=== PATIENT | male | born 1935 | race Caucasian/White ===

== ENCOUNTER → 2016-09-26 | Day surgery (SDC) | payer MEDICARE ==
[~2016-09-26] MED LIST: SIMETHICONE 40 MG/0.6 ML DROPS 2,000 MG/30 ML BOTTLE PO ONE
== END ==
LOC: ORWHC2ENDO 06:37
PROVIDERS: ATTEND Internal Medicine Gastroenterology
DX: K31.819 Angiodysplasia of stomach and duodenum without bleeding (principal); D50.9 Iron deficiency anemia, unspecified
CPT/HCPCS: 91110

== ENCOUNTER 2016-12-04 18:29 | Observation (INO) | payer MEDICARE ==
--- NOTE | 2016-12-04 18:57 | ED ---
General Adult HPI - General Chief complaint: Chest Pain Stated complaint: Chest Pain Time Seen by Provider: 12/04/16 18:42 Source: patient, family, EMS, RN notes reviewed Mode of arrival: EMS Limitations: no limitations - History of Present Illness Initial comments: Patient is a pleasant 81-year-old male presenting to the emergency Department with chest discomfort. Onset was around 1:00. Discomfort did improve with nitroglycerin. Discomfort is currently 5/10. Discomfort is feeling like heaviness. Patient does have some mild associated dyspnea. No nausea. Patient felt warm earlier however no sweating. Patient does have a history of CHF. Patient has not had similar symptoms previously however. Patient was seen at [facility] and they did discuss the case with cardiology. Decision was to transfer for cardiology care. - Related Data Home Medications Medication Instructions Recorded Confirmed Captopril [Capoten] 12.5 mg PO DAILY 03/18/14 12/04/16 Furosemide [Lasix] 80 mg PO BID 03/18/14 12/04/16 Levothyroxine Sodium [Synthroid] 50 mcg PO DAILY 03/18/14 12/04/16 Metoprolol Succinate [Toprol XL] 25 mg PO DAILY 03/18/14 12/04/16 Pravastatin Sodium [Pravachol] 40 mg PO HS 03/18/14 12/04/16 Spironolactone [Aldactone] 50 mg PO BID 03/18/14 12/04/16 Budesonide [Pulmicort] 0.5 mg INHALATION RT-BID 03/23/14 12/04/16 Fish Oil/Dha/Epa [Fish Oil 1,200 1 cap PO DAILY 03/23/14 12/04/16 mg Fish Oil] ALPRAZolam [Xanax] 0.25 mg PO DAILY PRN 09/25/16 12/04/16 Docusate [Colace] 100 mg PO DAILY PRN 12/04/16 12/04/16 Focus Maculapro 1 tab PO DAILY 12/04/16 12/04/16 Lutein 10 mg PO DAILY 12/04/16 12/04/16 Pantoprazole Sodium [Protonix] 40 mg PO DAILY 12/04/16 12/04/16 Vit C/E/Zn/Coppr/Lutein/Zeaxan 1 cap PO BID 12/04/16 12/04/16 [Preservision Areds 2 Softgel] Allergies Allergy/AdvReac Type Severity Reaction Status Date / Time celecoxib [From Celebrex] Allergy Rash/Hives Verified 12/04/16 18:44 indomethacin [From Indocin] Allergy Unknown Verified 12/04/16 18:44 indomethacin sodium Allergy Unknown Verified 12/04/16 18:44 [From Indocin] Penicillins Allergy Anaphylaxis Verified 12/04/16 18:44 Sulfa (Sulfonamide Allergy Rash/Hives Verified 12/04/16 18:44 Antibiotics) bacitracin AdvReac Blisters Verified 12/04/16 18:44 [From Neosporin ([id number])] bacitracin zinc AdvReac Blisters Verified 12/04/16 18:44 [From Neosporin ([id number])] codeine AdvReac Nausea & Verified 12/04/16 18:44 Vomiting neomycin sulfate AdvReac Blisters Verified 12/04/16 18:44 [From Neosporin ([id number])] polymyxin B AdvReac Blisters Verified 12/04/16 18:44 [From Neosporin ([id number])] Review of Systems ROS Statement: Those systems with pertinent positive or pertinent negative responses have been documented in the HPI. ROS Other: All systems not noted in ROS Statement are negative. Constitutional: Denies: fever Eyes: Denies: eye pain ENT: Denies: ear pain Respiratory: Reports: dyspnea. Denies: cough Cardiovascular: Reports: chest pain Endocrine: Denies: fatigue Gastrointestinal: Denies: abdominal pain Genitourinary: Denies: dysuria Skin: Denies: rash Neurological: Denies: weakness Past Medical History Past Medical History: Atrial Fibrillation, COPD, GERD/Reflux, GI Bleed, Hyperlipidemia, Hypertension, Skin Disorder, Sleep Apnea/CPAP/BIPAP, Thyroid Disorder Additional Past Medical History / Comment(s): see Dr Barrios H&P, arthritis, eczema,hx asbestos exposure. 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 RECENT GI BLEED 09/04/16, HX VERTIGO History of Any Multi-Drug Resistant Organisms: None Reported Past Surgical History: AICD, Appendectomy, Hernia Repair, Joint Replacement, Orthopedic Surgery Additional Past Surgical History / Comment(s): BILAT TKA, heel spurs, BILAT CTR X2, COLONOSCOPY, EGD, RECTAL FISTULA SX. [facility] AICD Past Anesthesia/Blood Transfusion Reactions: Previous Problems w/ Anesthesia Additional Past Anesthesia/Blood Transfusion Reaction / Comment(s): WAS AGGITATED ONCE WITH ANESTHESIA PER DAUGHTER, OTHERWISE NO PROBLEMS Type of Cardiac Device: AICD Device Placement Date:: 03-23-14 Past Psychological History: Anxiety Smoking Status: Former smoker Past Alcohol Use History: Daily Additional Past Alcohol Use History / Comment(s): quit smoking approx 1968 started at age 10. DRINKS 2-3 BEERS DAILY Past Drug Use History: None Reported - Past Family History Mother Family Medical History: Cancer Sister(s) Family Medical History: Cancer General Exam Limitations: no limitations General appearance: alert, in no apparent distress Head exam: Present: atraumatic Eye exam: Present: normal appearance, PERRL ENT exam: Present: normal oropharynx Neck exam: Present: normal inspection Respiratory exam: Present: wheezes (Mild expiratory wheeze). Absent: chest wall tenderness Cardiovascular Exam: Present: regular rate, normal rhythm Expanded Peripheral pulses: 2+: Radial (R), Radial (L), Dorsalis Pedis (R), Dorsalis Pedis (L) GI/Abdominal exam: Present: soft. Absent: tenderness Extremities exam: Present: normal inspection. Absent: pedal edema, calf tenderness Neurological exam: Present: alert Psychiatric exam: Present: normal affect, normal mood Skin exam: Absent: rash Course Vital Signs 12/04/16 18:30 Temperature 98 F Pulse Rate 94 Respiratory 18 Rate Blood Pressure 113/68 O2 Sat by Pulse 93 L Oximetry Medical Decision Making - Medical Decision Making Reports reviewed from [facility]. Case was discussed in detail with practitioner Enid sweet, who will admit for Dr. Temple who is covering for Dr. martinez who admits for Dr. Gilliam. Disposition Clinical Impression: Unstable angina pectoris Disposition: ADMITTED IP TO THIS [facility] Time of Disposition: 18:57
[2016-12-04] MEDS ORDERED: HEPARIN SODIUM,PORCINE 5,000 UNIT/ML 1 ML VIAL IV PRN (19:03)
[2016-12-04] MEDS ORDERED: NITROGLYCERIN-D5W PMX 50 MG in DEXTROSE/WATER 1 250ML.BAG IV ONE (19:05)
[2016-12-04] MEDS ORDERED: HEPARIN SODIUM,PORCINE/D5W PMX 25,000 UNIT in DEXTROSE/WATER 1 500ML.BAG IV SCH (19:15)
[2016-12-04 21:10] VITALS: BMI 42.4
[2016-12-04 22:24] LABS: Creatine Kinase 26 U/L (55-170)
[2016-12-04 22:28] VITALS: RESP 18
[2016-12-04 22:37] LABS: Creatine Kinase MB 0.3 ng/mL (0.0-2.4); Troponin I <0.012 ng/mL (0.000-0.034)
[2016-12-04] MEDS: HYDROmorphone 1 MG/ML 1 ML SYRINGE IVP PRN (23:45)
[2016-12-05 01:23] LABS: Creatine Kinase 24 U/L (55-170)
[2016-12-05 01:36] LABS: Creatine Kinase MB 0.3 ng/mL (0.0-2.4); Troponin I <0.012 ng/mL (0.000-0.034)
[2016-12-05] MEDS: HYDROmorphone 1 MG/ML 1 ML SYRINGE IVP PRN (06:48)
[2016-12-05 07:21] LABS: Cholesterol 119 mg/dL (<200); HDL Cholesterol 42 mg/dL (40-60); Triglycerides 86 mg/dL (<150)
[2016-12-05] MEDS ORDERED: ASPIRIN 325 MG TAB PO SCH (09:00)
[2016-12-05] MEDS ORDERED: METOPROLOL SUCCINATE (ER) 25 MG TAB.ER.24H PO SCH (09:00)
--- NOTE | 2016-12-05 09:04 | P.CRDCN ---
History of Present Illness Consult date: 12/05/16 Requesting physician: Candido Temple Consult reason: chest pain Chief complaint: Chest pain History of present illness: This is an 81-year-old gentleman who follows regularly with Dr. Michael in the office. He has a known history of hyperlipidemia, peripheral vascular disease, hypertension, COPD, sleep apnea, nonischemic cardiomyopathy with prior bypass AICD implantation, paroxysmal atrial fibrillation, patient had been on anticoagulation in the past, she had significant GI bleeding and for this reason is not currently on anticoagulation. Patient underwent EGD which revealed in February 03 for which he underwent cauterization of that area. Subsequent to that patient again had positive heme in his stool. He presents to [facility] on this occasion with symptoms of midsternal chest pressure and heaviness. According to the patient he went shopping yesterday and felt more short of breath than usual. He was sitting at his computer in the afternoon, when he developed pressure in the midsternal area radiating across his chest, he did become short of breath. He denies any diaphoresis or nausea. He states that he continues to have the discomfort this morning although it seems to come and go. The pain does worsen or improve with specific movement and with deep inspiration. Patient was transferred here to [facility]. Blood pressure on arrival here 113/68 with a heart rate in the 90s, 93% on 2 L of oxygen. EKG shows a ventricular paced rhythm. Chest x-ray performed at [facility] did not reveal any acute process. Correlation for asbestos recommended. Laboratory data at [facility], sodium 137, potassium 4.6, BUN 35, creatinine 1.4, troponin less than 0.03. WBC 12.9, hemoglobin 13, platelet count 303. Troponins 2 have been negative here as well. At the time of my examination this morning, patient complains of mild heaviness in the chest, improves with lying on his left side. Past Medical History Past Medical History: Atrial Fibrillation, Chest Pain / Angina, COPD, GERD/ Reflux, GI Bleed, Hearing Disorder / Deafness, Hyperlipidemia, Hypertension, Skin Disorder, Sleep Apnea/CPAP/BIPAP, Thyroid Disorder Additional Past Medical History / Comment(s): see Dr Barrios H&P, arthritis, eczema,hx asbestos exposure. 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 RECENT GI BLEED 09/04/16, HX VERTIGO, small bowel cautery 10/08/[address] Monroe History of Any Multi-Drug Resistant Organisms: None Reported Past Surgical History: AICD, Appendectomy, Hernia Repair, Joint Replacement, Orthopedic Surgery Additional Past Surgical History / Comment(s): BILAT TKA, heel spurs, BILAT CTR X2, COLONOSCOPY, EGD, RECTAL FISTULA SX. [facility] AICD, small bowel egd Past Anesthesia/Blood Transfusion Reactions: Previous Problems w/ Anesthesia Additional Past Anesthesia/Blood Transfusion Reaction / Comment(s): WAS AGGITATED ONCE WITH ANESTHESIA PER DAUGHTER, OTHERWISE NO PROBLEMS Type of Cardiac Device: AICD Device Placement Date:: 03-23-14 Past Psychological History: Anxiety Smoking Status: Former smoker Past Alcohol Use History: Daily Additional Past Alcohol Use History / Comment(s): started at age 10. DRINKS 2- 3 BEERS DAILY Past Drug Use History: None Reported - Past Family History Mother Family Medical History: Cancer Additional Family Medical History / Comment(s): breast CA age 98 Sister(s) Family Medical History: Cancer Medications and Allergies Home Medications Medication Instructions Recorded Confirmed Type Captopril [Capoten] 12.5 mg PO HS 03/18/14 12/04/16 History Furosemide [Lasix] 80 mg PO BID 03/18/14 12/04/16 History Levothyroxine Sodium [Synthroid] 50 mcg PO HS 03/18/14 12/04/16 History Metoprolol Succinate [Toprol XL] 25 mg PO DAILY 03/18/14 12/04/16 History Pravastatin Sodium [Pravachol] 40 mg PO HS 03/18/14 12/04/16 History Spironolactone [Aldactone] 50 mg PO BID 03/18/14 12/04/16 History Budesonide [Pulmicort] 0.5 mg INHALATION RT-BID 03/23/14 12/04/16 History Fish Oil/Dha/Epa [Fish Oil 1,200 1 cap PO DAILY 03/23/14 12/04/16 History mg Fish Oil] ALPRAZolam [Xanax] 0.25 mg PO DAILY PRN 09/25/16 12/04/16 History Docusate [Colace] 100 mg PO HS 12/04/16 12/04/16 History Focus Maculapro 1 tab PO DAILY 12/04/16 12/04/16 History Lutein 10 mg PO DAILY 12/04/16 12/04/16 History Pantoprazole Sodium [Protonix] 40 mg PO DAILY 12/04/16 12/04/16 History Vit C/E/Zn/Coppr/Lutein/Zeaxan 1 cap PO BID 12/04/16 12/04/16 History [Preservision Areds 2 Softgel] Allergies Allergy/AdvReac Type Severity Reaction Status Date / Time celecoxib [From Celebrex] Allergy Rash/Hives Verified 12/04/16 20:00 indomethacin [From Indocin] Allergy Rash/Hives Verified 12/04/16 20:00 indomethacin sodium Allergy Rash/Hives Verified 12/04/16 20:00 [From Indocin] Penicillins Allergy Anaphylaxis Verified 12/04/16 20:00 Sulfa (Sulfonamide Allergy Rash/Hives Verified 12/04/16 20:00 Antibiotics) bacitracin AdvReac Blisters Verified 12/04/16 20:00 [From Neosporin ([id number])] bacitracin zinc AdvReac Blisters Verified 12/04/16 20:00 [From Neosporin ([id number])] codeine AdvReac Nausea & Verified 12/04/16 20:00 Vomiting neomycin sulfate AdvReac Blisters Verified 12/04/16 20:00 [From Neosporin ([id number])] polymyxin B AdvReac Blisters Verified 12/04/16 20:00 [From Neosporin ([id number])] Physical Exam Vitals: Vital Signs Temp Pulse Pulse Resp BP BP Pulse Ox 12/05/16 04:30 97.6 F 85 18 143/92 96 12/04/16 23:00 98.9 F 91 18 119/57 96 12/04/16 20:20 98.0 F 102 H 18 122/63 98 12/04/16 19:56 102 H 20 123/55 97 Intake and Output 12/04/16 12/05/16 12/05/16 22:59 06:59 14:59 Intake Total 500 120.333 0 Output Total 780 200 Balance 500 -659.667 -200 Intake: Amount of Fluid Infused ( 250 ml) Intake, IV Titration 120.333 Amount Heparin Sodium,Porcine/ 120.333 D5w Pmx 25,000 unit In Dextrose/Water 1 500ml. bag @ 12 UNITS/KG/HR 27. 21 mls/hr IV .[id number] [facility] Rx#:[id number] Oral 250 0 Output: Urine 675 200 Post Void Residual 105 Other: Voiding Method Urinal # Voids 1 Weight 115.666 kg 112.4 kg PHYSICAL EXAMINATION: HEENT: Head is atraumatic, normocephalic. Pupils equal, round. Neck is supple. There is no elevated jugular venous pressure. HEART EXAMINATION: Heart S1, S2 normal. No murmur or gallop heard. CHEST EXAMINATION: His reveal coarse rhonchi that clear with cough. ABDOMEN: Soft, obese, nontender. Bowel sounds are heard. No organomegaly noted. EXTREMITIES: 2+ peripheral pulses with trace evidence of peripheral edema and no calf tenderness noted. NEUROLOGIC patient is awake, alert and oriented -3. . Results 12/05/16 06:39 Cardiac Enzymes 12/04/16 12/05/16 Range/Units 21:46 00:52 CK-MB (CK-2) 0.3 0.3 (0.0-2.4) ng/mL Troponin I <0.012 <0.012 (0.000-0.034) ng/mL Coagulation 12/05/16 12/05/16 Range/Units 00:52 06:39 APTT 34.0 H 55.9 H (22.0-30.0) sec Lipids 12/05/16 Range/Units 06:39 Triglycerides 86 (<150) mg/dL Cholesterol 119 (<200) mg/dL HDL Cholesterol 42 (40-60) mg/dL CBC 12/05/16 Range/Units 06:39 Plt Count 234 (150-450) k/uL Current Medications Generic Name Dose Route Start Last Admin Trade Name Freq PRN Reason Stop Dose Admin Aspirin 325 mg 12/05/16 09:00 Aspirin PO DAILY [facility] Heparin Sodium (Porcine) 0 unit 12/04/16 19:03 12/05/16 01:27 Heparin IV 4,000 unit Q6HR PRN Administration Low PTT Protocol Hydromorphone HCl 0.5 mg 12/04/16 23:15 12/05/16 06:48 Dilaudid IVP 0.5 mg Q6HR PRN Administration Pain Heparin Sodium/Dextrose 25,000 500 mls @ 27.21 mls/hr 12/04/16 19:15 01:28 unit/ IV Solution IV 11.81 units/kg/hr .[id number] [facility] 26.78 mls/hr Protocol Titration 12 UNITS/KG/HR Nitroglycerin/Dextrose 50 mg/ 250 mls @ 3 mls/hr 12/04/16 19:05 12/04/16 19: 26 IV Solution IV 12/05/16 19:04 10 mcg/min .Q24H ONE 3 mls/hr Protocol Administration 10 MCG/MIN Intake and Output 12/04/16 12/05/16 12/05/16 22:59 06:59 14:59 Intake Total 500 120.333 0 Output Total 780 200 Balance 500 -659.667 -200 Intake: Amount of Fluid Infused ( 250 ml) Intake, IV Titration 120.333 Amount Heparin Sodium,Porcine/ 120.333 D5w Pmx 25,000 unit In Dextrose/Water 1 500ml. bag @ 12 UNITS/KG/HR 27. 21 mls/hr IV .[id number] [facility] Rx#:[id number] Oral 250 0 Output: Urine 675 200 Post Void Residual 105 Other: Voiding Method Urinal # Voids 1 Weight 115.666 kg 112.4 kg 12/05/16 06:39 EKG Interpretations (text) EKG shows a ventricular paced rhythm. Assessment and Plan Plan: Assessment and plan #1 chest pain, atypical for acute coronary syndrome. Troponins negative 3. EKG shows a ventricular paced rhythm. #2 nonischemic cardiomyopathy with prior Bi-V AICD implantation #3 hypertension #4 hyperlipidemia #5 COPD #6 sleep apnea #7 paroxysmal atrial fibrillation not on anticoagulation because of prior GI bleeds #8 acute on chronic renal disease Plan We will resume the patient's Capoten, Lasix, metoprolol tartrate, Aldactone and pravastatin. Discontinue IV heparin. Discontinue IV nitroglycerin. Obtain echocardiogram with Doppler study. At this point we will maximize the patient' s medical therapy. If he has recurrent chest pain consider stress testing. DNP note has been reviewed, I agree with a documented findings and plan of care. Patient was seen and examined.
[2016-12-05] MEDS: FUROSEMIDE 80 MG TAB PO SCH ×2 (09:58→15:47)
[2016-12-05] MEDS: SPIRONOLACTONE 25 MG TAB PO SCH ×2 (09:59→15:47)
--- NOTE | 2016-12-05 11:00 | ECHOF ---
Referral Reason:chest pain MEASUREMENTS -------- HEIGHT: 165.1 cm WEIGHT: 112.0 kg BP: 139/66 IVSd: 1.1 cm (0.6 - 1.1) LVIDd: 4.6 cm (3.9 - 5.3) LVPWd: 1.1 cm (0.6 - 1.1) IVSs: 1.5 cm LVIDs: 3.4 cm LVPWs: 1.5 cm Ao Diam: 3.3 cm (2.0 - 3.7) AV Cusp: 2.1 cm (1.5 - 2.6) LA Diam: 2.5 cm (2.7 - 3.8) MV EXCURSION: 20.130 mm (> 18.000) MV EF SLOPE: 75 mm/s (70 - 150) EPSS: 0.5 cm MV E Galen: 0.76 m/s MV DecT: 172 ms MV A Galen: 0.65 m/s MV E/A Ratio: 1.17 RAP: 5.00 mmHg RVSP: 26.53 mmHg FINDINGS -------- Pacemaker This was a technically difficult study with suboptimal views. Left ventricular wall thickness is normal. Overall left ventricular systolic function is low-normal with, an EF between 50 - 55 %. The right ventricle is normal in size and function. The left atrium is normal in size. The right atrium is normal in size. 1.5mg of Definity was utilized for enhancement of images The aortic valve is trileaflet, and appears structurally normal. No aortic stenosis or regurgitation. The mitral valve leaflets are mildly thickened. Mild mitral regurgitation is present. Mild tricuspid regurgitation present. The right ventricular systolic pressure, as measured by Doppler, is 26.53mmHg. Pulmonic valve appears structurally normal. The aortic root size is normal. The pericardium is normal. CONCLUSIONS -------- 1. Pacemaker 2. The mitral valve leaflets are mildly thickened. 3. Mild mitral regurgitation is present. 4. Mild tricuspid regurgitation present. 5. The right ventricular systolic pressure, as measured by Doppler, is 26.53mmHg. 6. Pulmonic valve appears structurally normal. 7. The aortic root size is normal. 8. The pericardium is normal. 9. This was a technically difficult study with suboptimal views. 10. Left ventricular wall thickness is normal. 11. Overall left ventricular systolic function is low-normal with, an EF between 50 - 55 %. 12. The right ventricle is normal in size and function. 13. The left atrium is normal in size. 14. The right atrium is normal in size. 15. 1.5mg of Definity was utilized for enhancement of images 16. The aortic valve is trileaflet, and appears structurally normal. No aortic stenosis or regurgitation. CARPENTER ASSISTANT INSTALLER: Chelsie Solo RDCS
[2016-12-05] MEDS ORDERED: ALPRAZolam 0.25 MG TAB PO PRN (11:09)
[2016-12-05 11:51] LABS: CH 27.5; CHCM 29.9; HCT 36.9 % (39.0-53.0); HDW 2.06; HGB 11.2 gm/dL (13.0-17.5); MCHC 30.3 g/dL (31.0-37.0); MCV 92.3 fL (80.0-100.0); RDW 16.6 % (11.5-15.5); WBC (Perox) 9.55
[2016-12-05 11:52] LABS: Anisocytosis Slight; Basophils # (A) 0.1 k/uL (0-0.2); Basophils % (A) 1 %; Eosinophils # (A) 0.4 k/uL (0-0.7); Eosinophils % (A) 4 %; Hyperchromasia Moderate; Luc % (Auto) 3; Lymphocytes % (A) 11 %; Monocytes # (A) 1.2 k/uL (0-1.0); Monocytes % (A) 14 %; Neutrophils # (A) 6.1 k/uL (1.3-7.7); Neutrophils % (A) 67 %
[2016-12-05 11:53] VITALS: BP 110/62; PULSE 73; TEMP 97.5
[2016-12-05 11:53] LABS: Luc # (Auto) 0.25
[2016-12-05 14:28] LABS: Anion Gap 9 mmol/L; Blood Urea Nitrogen 33 mg/dL (9-20); Calcium 8.7 mg/dL (8.4-10.2); Carbon Dioxide 21 mmol/L (22-30); Chloride 104 mmol/L (98-107); Glucose 127 mg/dL (74-99); Non-African American GFR(MDRD) 54 (>60 ml/min/1.73 sqM); Potassium 4.3 mmol/L (3.5-5.1); Sodium 134 mmol/L (137-145)
--- NOTE | 2016-12-05 17:49 | HP ---
H&P AND DISCHARGE SUMMARY DATE OF ADMISSION: Patient is an 81-year-old pleasant gentleman with history of non-ischemic cardiomyopathy in the past and peripheral vascular disease and AICD in place. Present ejection fraction is 55%. He came in with chest pain which appears to be purely musculoskeletal. Patient was evaluated by Cardiology. Patient has 7/10 pain, constant, sharp in nature, diffusely on the chest. Denied any shortness of breath. Denied any fever or chills. Patient was transferred from [facility] for further evaluation here. Cardiology evaluated and patient's chest pain is clearly reproducible; appears to be costochondritis, although because of his renal function I cannot use NSAIDs like ibuprofen. I asked him to take extra-strength Tylenol for that and patient will be discharged today. Patient had an echocardiogram which showed normal ejection fraction; did not show any wall motion abnormalities. Patient's sodium is low and creatinine is 1.28. I do not have his baseline. Because of his low sodium and creatinine, I believe patient may have acute renal failure secondary to excessive diuretic therapy, and because of hyponatremia secondary to excessive diuretic therapy, I will change the Lasix to 40 mg b.i.d. Patient will be discharged today. REVIEW OF SYSTEMS: CARDIOVASCULAR: As described in HPI. Patient denied any shortness of breath or orthopnea, PND. PULMONARY: Denied any shortness of breath. No cough or hemoptysis. GASTROINTESTINAL: No diarrhea, nausea or vomiting. No abdominal pain. Normoactive bowel sounds. NEUROLOGIC: No headaches, no weakness, no numbness. All other systems were reviewed and were negative. Patient denied any blood in the stools, dark stools. PAST MEDICAL HISTORY: 1. Atrial fibrillation. 2. Gastroesophageal reflux disease. 3. Sleep apnea; uses CPAP machine. 4. Hearing problems. 5. Hyperlipidemia. 6. Hypertension. 7. Hypothyroidism. 8. AICD placement. 9. Appendectomy. 10. Hernia repair. 11. Patient apparently had non-ischemic cardiomyopathy in the past, although his cardiomyopathy appears to have improved. SOCIAL HISTORY: Former smoker. Denied any alcohol abuse or any drug abuse. Does drink 2 to 3 beers daily. FAMILY HISTORY: Mother had breast cancer at age 98. Sister had cancer. HOME MEDICATIONS: 1. Captopril. 2. Lasix. 3. Levothyroxine. 4. Metoprolol. 5. Pravastatin. 6. Aldactone. 7. Budesonide. 8. Alprazolam. 9. Docusate. 10. Lutein. 11. Pantoprazole. PHYSICAL EXAMINATION: Temperature 97.5, pulse of 73, respiratory rate of 18. Blood pressure is 110/62. Saturating at 96% on 2 L of oxygen by nasal cannula. GENERAL: The patient is alert and oriented x3, not in any acute distress. Well developed, well nourished. HEENT: Pupils are round and equally reacting to light. EOMI. No scleral icterus. No conjunctival pallor. Normocephalic, atraumatic. No pharyngeal erythema. No thyromegaly. CARDIOVASCULAR: S1 and S2 present. No murmurs, rubs, or gallops. PULMONARY: Chest is clear to auscultation. Patient does not have any wheezing or crackles. Patient's chest pain is reproducible. ABDOMEN: Soft, nontender, nondistended, normoactive bowel sounds. No palpable organomegaly. MUSCULOSKELETAL: No joint swelling or deformity. EXTREMITIES: No cyanosis, clubbing, or pedal edema. NEUROLOGICAL: Gross neurological examination did not reveal any focal deficits. SKIN: No rashes. LABORATORY DATA: CBC, CMP abnormal for low sodium of 134 and creatinine 1.28, BUN of 33. I do not have any baseline creatinine from this hospital. ASSESSMENT AND PLAN: 1. Chest pain, atypical, musculoskeletal. Rule out acute coronary artery syndromes. 2. Non-ischemic cardiomyopathy with biventricular automatic implantable cardioverter defibrillator. Now ejection fraction is normal ( ) ischemic cardiomyopathy appears to have resolved, which is chronic, and patient does not have any acute exacerbation. 3. Hypertension. 4. Hyperlipidemia. 5. Chronic obstructive pulmonary disease. 6. Sleep apnea. 7. Paroxysmal atrial fibrillation, at present rate-controlled. 8. Patient had previous gastrointestinal bleed, because of which patient is not on any anticoagulation. 9. Renal failure. Not sure whether patient has acute renal failure or chronic, and hyponatremia, probably due to excessive Lasix. Management of these two as mentioned above. 10. Morbid obesity. Does have history of sleep apnea. Uses CPAP machine at home. 11. Hypothyroidism. Continue with levothyroxine. PLAN: Patient will be discharged today. Follow up closely with Dr. Seferino Ling in 3 to 7 days. Activity as tolerated. Cardiac diet. CHF discharge instructions will be provided. Since we decreased the Lasix, patient needs to closely follow up with PCP and also transfer man as an outpatient. YONATAN
[2016-12-05] MEDS ORDERED: BUDESONIDE 0.5 MG/2 ML NEBU INHALATION SCH (20:00)
[2016-12-05] MEDS ORDERED: LEVOTHYROXINE 50 MCG TAB PO SCH (21:00)
[2016-12-05] MEDS ORDERED: CAPTOPRIL 12.5 MG TAB PO SCH (21:00)
[2016-12-05] MEDS ORDERED: PRAVASTATIN SODIUM 40 MG TAB PO SCH (21:00)
[2016-12-06] MEDS ORDERED: PANTOPRAZOLE 40 MG TABLET PO SCH (07:30)
[2016-12-06] MEDS ORDERED: NON-FORMULARY DRUG (Lutein [Lutein] 10 MG) PO SCH (09:00)
== END 2016-12-05 16:17 | disposition home or self-care (01) ==
LOC: EC 18:29 → UNDOADMIN 19:04 → 6SEL 19:04 → INTOOBSV 12-05 14:29 → 6SEL 12-05 14:29
PROVIDERS: ADMIT Internal Medicine; ATTEND Internal Medicine
DX: R07.89 Other chest pain (principal); I13.0 Hypertensive heart and chronic kidney disease with heart failure and stage 1 through stage 4 chronic kidney disease, or unspecified chronic kidney disease; I25.5 Ischemic cardiomyopathy; I50.9 Heart failure, unspecified; E78.5 Hyperlipidemia, unspecified; J44.9 Chronic obstructive pulmonary disease, unspecified; G47.30 Sleep apnea, unspecified; Z99.89 Dependence on other enabling machines and devices; I48.0 Paroxysmal atrial fibrillation; N19 Unspecified kidney failure; E87.1 Hypo-osmolality and hyponatremia; E66.01 Morbid (severe) obesity due to excess calories; Z68.41 Body mass index [BMI] 40.0-44.9, adult; E03.9 Hypothyroidism, unspecified; H91.90 Unspecified hearing loss, unspecified ear; F41.9 Anxiety disorder, unspecified; K21.9 Gastro-esophageal reflux disease without esophagitis; I73.9 Peripheral vascular disease, unspecified; G51.0 Bell's palsy; Z79.899 Other long term (current) drug therapy; Z79.51 Long term (current) use of inhaled steroids; Z88.1 Allergy status to other antibiotic agents; Z88.5 Allergy status to narcotic agent; Z88.0 Allergy status to penicillin; Z88.2 Allergy status to sulfonamides; Z88.8 Allergy status to other drugs, medicaments and biological substances; Z87.891 Personal history of nicotine dependence; Z95.810 Presence of automatic (implantable) cardiac defibrillator; Z80.3 Family history of malignant neoplasm of breast; Z77.090 Contact with and (suspected) exposure to asbestos
CPT/HCPCS: 96365; 96368; 99285; 85379; 80061; 80048; 82550 ×2; 82553 ×2; 84484 ×2; 85025; 85730; G0378; C8929; J1644 ×2; J1170 ×2; 93306